=== PATIENT | male | born 1930 | race Caucasian/White ===

== ENCOUNTER 2017-03-07 22:43 | Observation (INO) | payer MEDICARE, BC ==
[~2017-03-07] VITALS: Ht 188 cm; Wt 84.9 kg
--- NOTE | ~2017-03-07 | ER ---
PATIENT'S NAME: BALBIR CLEARY [facility] AGE: 87 Y [address] ROOM: [place] [address] LOCATION: [facility] [place] ADMIT DATE: 03/08/2017 ER/Outpatient Report DISCHARGE DATE: FAMILY PHYSICIAN: PHYSICIAN, UNKNOWN ATTENDING PHYSICIAN: DANIEL ARMSTRONG V Admission date and time documented in medical record. I saw the patient at 2258 hours. CHIEF COMPLAINT: Generalized weakness and cough. HISTORY OF PRESENT ILLNESS: This patient is an 87-year-old male, who was outside most of the day gardening. He was doing okay, came inside tonight and just started to get onset of kind of generalized weakness that progressed to the point that he could hardly stand. He has a nonproductive cough. No chest pain. No abdominal pain. He did have some nausea and vomited once earlier tonight. Did not have any diarrhea or urinary complaints. He is not feeling short of breath. Does feel lightheaded and dizzy, but no syncope or near syncope. No headache, eyes, ears, nose, throat, neck, or spine pain. No recent infections that he has been fighting. No joint or muscle swelling, redness, or pain. No skin eruptions or rash. Does have rbw-kdfvqrw-vvqtpdpfy diabetes mellitus. No other endocrine problems. No neuro changes. No psych issues. HOME MEDICATIONS: See attached medication list. ALLERGIES: NONE. SOCIAL HISTORY: Nonsmoker and nondrinker. SIGNIFICANT PAST MEDICAL HISTORY: Hypertension, dyslipidemia, skin cancer, chronic atrial fibrillation, chronic anticoagulation with Coumadin, tachy-corinna syndrome, rbq-kwcujcc-dehqsyuwj diabetes mellitus, prostate cancer. OPERATIONS: Pacemaker implantation and skin cancer excisions. REVIEW OF SYSTEMS: All systems reviewed by me are negative with the exception of those discussed in the history of the present illness. PATIENT'S NAME: BALBIR CLEARY [facility] AGE: 87 Y [address] ROOM: [place] [address] LOCATION: [facility] [place] ADMIT DATE: 03/08/2017 ER/Outpatient Report DISCHARGE DATE: FAMILY PHYSICIAN: PHYSICIAN, UNKNOWN ATTENDING PHYSICIAN: DANIEL ARMSTRONG V PHYSICAL EXAMINATION: VITAL SIGNS: Temperature 100.8 tympanic, pulse 97, respiratory rate 20, blood pressure 132/59, O2 saturation on 4 L oxygen per nasal cannula is 93%. HEENT: Head normocephalic. No abrasion, contusion, laceration, or swelling of the scalp or face. Eyes: Extraocular muscles intact. SAMIA. Sclerae and conjunctivae are clear, nonicteric. Ears: Clear TMs bilaterally. Nose: Clear. Throat: Clear. Mucous membranes a little dry. NECK: No nuchal rigidity. No findings of adenopathy. No tenderness. SPINE: Negative. LUNGS: Clear. No rales, rhonchi, or wheezes. Fairly good air flow. Normal cough. HEART: Regular. Pulses palpable. The patient is mildly tachypneic. ABDOMEN: Soft, nondistended, nontender. Good bowel tones. No organomegaly or abnormal masses palpable. No CVA tenderness. PELVIS: Stable. EXTREMITIES: No peripheral edema, cyanosis, or deformity. NEURO: Cranial nerves appear to be intact. No lateralizing sign. The patient is awake, alert, cooperative. Motor and sensory intact. SKIN: Clear. No skin eruptions or rash. The patient just appears to be weak, but not overly lethargic. DIAGNOSTIC STUDIES: Chest x-ray shows no acute infiltrate. We will review x-ray with the radiologist. EKG showed atrial fibrillation, some possible anterolateral changes. LABORATORY DATA: ProBNP was 2431. CMS was normal except for an elevated glucose of 206. Elevated BUN of 28, elevated creatinine of 1.7, low GFR of 38. Magnesium was 1.5. CPK was 51. Bdunl-hz-nbsw cardiac enzymes were normal. Urine showed 0- 2 whites, 5-10 reds, 0-2 epithelial cells, negative bacteria per high-powered field. Culture: Pending. Two blood cultures were drawn, results pending. D- dimer was 0.81. White count is 5200, 24 segs, 58 bands, 11 lymphs, 6 monos, 1 eos. Hemoglobin is 9.9, hematocrit 30.9, platelet count is 122,000. PTT was 35. Protime is 25.5 and INR 2.41. Lactate was elevated at 2.4 Procalcitonin was elevated at 2.35. CRP was 0.69. Did give the patient IV normal saline and fluids. Did not start him on any antibiotics at this time. IMPRESSION: 1. Possible sepsis, etiology or source undetermined at this time but most likely respiratory. The patient does have a cough. He does have a fever PATIENT'S NAME: BALBIR CLEARY [facility] AGE: 87 Y [address] ROOM: [address] [place], [place] [address] LOCATION: [facility] [place] ADMIT DATE: 03/08/2017 ER/Outpatient Report DISCHARGE DATE: FAMILY PHYSICIAN: PHYSICIAN, UNKNOWN ATTENDING PHYSICIAN: DANIEL ARMSTRONG V of 100.8. He has normal white count, but he has bandemia with 58% bands. He is tachypneic, mildly hypoxic, elevated lactate and procalcitonin. New onset illness. Culture is pending. 2. Hypertension. 3. Rnw-fgzvdje-opeshakln diabetes mellitus with a blood sugar of 206. 4. Chronic renal failure with a BUN of 28, creatinine 1.7, low GFR of 38. 5. Anemia of chronic disease. 6. Chronic atrial fibrillation with chronic anticoagulation using Coumadin. 7. Thrombocytopenia. 8. History of tachy-corinna syndrome, having pacer rhythm at the present time. 9. Dyslipidemia. PLAN: Discussed the patient with Dr. Armstrong, hospitalist. Dr. Armstrong will come in to the emergency room to evaluate the patient. Most likely, we will admit the patient to the hospital. Probably, we will start him on an antibiotic and then further treatment and workup as needed. Discussion ensued with the patient concerning my findings and recommendations and he understands. Accumulated critical care time 30 minutes. MD CAROLYNN CHAVES/modl /[id number] d: 03/08/17 0439 t: 03/08/17 1809, OUTPATIENT REPORT
--- NOTE | ~2017-03-07 | HP ---
[facility] 87 Y [address] ROOM: [place] [id number] [place] [facility] [place]: 03/08/2017 History & Physical DISCHARGE DATE: FAMILY PHYSICIAN: PHYSICIAN, UNKNOWN ATTENDING PHYSICIAN: DANIEL ARMSTRONG V DATE OF SERVICE: CHIEF COMPLAINT: Fatigue, cough, nausea, and vomiting. HISTORY OF PRESENT ILLNESS: The patient is an 87-year-old male with past medical history as below. He was at his baseline and normally fairly healthy state of health until after supper last night. At that point, he developed fatigue, vomiting, and had to be helped around the house by his . Of note, he has been coughing productive of clear sputum even before his nausea and vomiting began. Initially, he went to bed, but continued to vomit, was weak, and was brought to the emergency room. Here his workup was remarkable for a normal white count and bandemia. He denies any chest pain, but does admit to some shortness of breath. No diarrhea. No constipation. No palpitations. No diaphoresis or syncope. REVIEW OF SYSTEMS: All 10 systems have been reviewed and are negative aside from pertinent positives as mentioned above. PAST MEDICAL HISTORY: 1. Prostatectomy for prostate cancer, currently on antihormone therapy. 2. Atrial fibrillation on Coumadin. 3. Status post pacemaker. 4. Essential hypertension. PAST SURGICAL HISTORY: The patient only endorses a history of a pacemaker and prostate surgery. SOCIAL HISTORY: Negative for any history of ongoing toxic habits. FAMILY HISTORY: Reviewed and noncontributory due to advanced age of this patient. CURRENT MEDICATIONS: 1. Coumadin. 2. Metoprolol. PATIENT'S NAME: BALBIR CLEARY [facility] AGE: 87 Y [address] ROOM: [address] [address] [place] [facility] [place]: 03/08/2017 History & Physical DISCHARGE DATE: FAMILY PHYSICIAN: PHYSICIAN, UNKNOWN ATTENDING PHYSICIAN: DANIEL ARMSTRONG V 3. Eulexin. 4. Zoladex. 5. PreserVision. 6. Hydrochlorothiazide. 7. Vitamin D. PHYSICAL EXAMINATION: VITAL SIGNS: Blood pressure 121/61, heart rate 89, satting 90% on room air, his temperature was 100.8 on admission, and respirations are 16. GENERAL: Appears as an elderly frail male in no acute distress. NEUROLOGIC: Exam is nonfocal. EYES: Exam shows pupils are equal and reactive to light. LYMPHATIC: Exam shows no cervical lymphadenopathy. ENDOCRINE: Exam shows no thyromegaly. LUNGS: Exam is significant for crackles at the left base. HEART: Irregular rate and rhythm without appreciable murmurs, gallops, or rubs. GI: Abdomen is soft, nontender, nondistended, but does reveal considerably diminished bowel sounds in all [place]. : Exam reveals no costovertebral angle tenderness. VASCULAR: A 2+ pedal pulses. MUSCULOSKELETAL: Exam is unremarkable. SKIN: Warm and dry. PSYCHIATRIC: Exam reveals appropriate mood, cognition, and affect. LABORATORY DATA: Studies done in the ER reveals a chest x-ray, which may have a questionable left-base infiltrate as per my interpretation. His lactate is 2.4, glucose is 206, creatinine is 1.7, from unknown baseline, pro-BNP is 2431. CBC white count 5.2, hemoglobin 9.9, and platelets 122. INR is 2.4. He does have 50% bands. Urinalysis is unremarkable. EKG reveals atrial fibrillation with rapid ventricular response. He does have some T-wave inversions in leads V3 through V6. ASSESSMENT AND PLAN: This is an 87-year-old male who will be admitted with febrile illness, nausea, vomiting, and bandemia. Individual problems to be addressed as follows: 1. Febrile illness/bandemia, given the fact that the patient does have a fever and bandemia as well as crackles at the left-base and he has had vomiting, we will treat him for a presumed pneumonia with Levaquin. We will put him on gastrointestinal prophylaxis with Florastor. We will follow blood cultures drawn in the ER. We will trend his white count and bands. 2. Diminished bowel sounds. We will do a 2-view flat film of his abdomen to rule out ileus, which may be contributing to his nausea and vomiting. PATIENT'S NAME: BALBIR CLEARY [facility] AGE: 87 Y [address] ROOM: [place] [address] [place] [facility] [place]: 03/08/2017 History & Physical DISCHARGE DATE: FAMILY PHYSICIAN: PHYSICIAN, UNKNOWN ATTENDING PHYSICIAN: DANIEL ARMSTRONG V 3. Elevated creatinine. I am not sure what the patient's baseline creatinine is, but we will gently hydrate him overnight and repeat his electrolytes in the morning. 4. Elevated pro-BNP and T-wave inversions. We will consider further cardiac workup in the morning. 5. Paroxysmal atrial fibrillation with rapid ventricular response due to probably an infectious process. He will be followed on telemetry. We will continue his lauren blockers. We will continue on his anticoagulation. 6. Prostate cancer. We will continue the patient on his current therapy. Additional management will depend on clinical course. Time dedicated to this patient encounter is 35 minutes. MD YUK/modl /[id number] D: 430 T: 740 HISTORY & PHYSICAL
[~2017-03-07 22:43] MED LIST changes: -COLACE100 MG PO; -FLORASTOR250 MG PO; -LEVAQUIN500 MG PO; -PRESERVISION A1 EACH PO
[2017-03-07 23:15] LABS: HEMATOCRIT 30.9 % (33.0-50.0); HEMOGLOBIN 9.9 g/dL (11.0-16.0); MCH 30.9 pg (27.0-34.0); MCV 96.6 fl (83.0-98.0); MPV 10.6 fl (9.4-12.4); PLATELET COUNT 122 K/uL (150-450); RDW-CV 13.2 % (11.9-14.6); WBC 5.2 K/uL (4.0-11.0)
[2017-03-07 23:21] LABS: INR - (THERAPEUTIC) 2.41 (0.92-1.07); PROTIME 25.5 SECONDS (9.8-11.4); PTT 35 SECONDS (25-32)
[2017-03-07 23:28] LABS: BILIRUBIN URINE NEGATIVE (NEGATIVE); BLOOD URINE 25 /UL (NEGATIVE); COLOR URINE YELLOW (YELLOW); GLUCOSE URINE NEGATIVE (NEGATIVE); KETONE URINE 15 mg/dL (NEGATIVE); LEUKOCYTES URINE NEGATIVE /UL (NEGATIVE); NITRITE URINE NEGATIVE (NEGATIVE); PROTEIN URINE 30 mg/dL (NEGATIVE); SPEC GRAVITY URINE 1.015 (1.003-1.035); TURBIDITY URINE CLEAR (CLEAR); UROBILINOGEN URINE NORMAL (NORMAL)
[2017-03-07 23:32] LABS: ALBUMIN 3.5 gm/dL (3.5-5.0); ALK PHOS 106 IU/L (33-138); ALT 17 IU/L (12-78); ANION GAP 11.7 (10.0-19.0); AST 14 IU/L (10-40); BLOOD UREA NITROGEN 28 mg/dL (6-24); CALCIUM 8.9 mg/dL (8.5-10.5); CHLORIDE 108 mMol/L (96-110); CO2 22 mMol/L (22-32); CPK 51 IU/L (35-332); CREATININE 1.7 mg/dL (0.6-1.3); ESTIMATED GFR (MDRD EQUATION) 38; MAGNESIUM 1.5 mg/dL (1.8-2.6); POTASSIUM 3.7 mMol/L (3.7-5.1); SODIUM 138 mMol/L (135-145); TOTAL BILIRUBIN 0.6 mg/dL (0.0-1.5); TOTAL PROTEIN 7.6 g/dL (6.0-8.4)
[2017-03-07 23:37] LABS: BACTERIA URINE NEGATIVE (NEGATIVE); EPITHELIAL URINE 0-2 #/HPF (NEGATIVE); WBC URINE 0-2 #/HPF (NEGATIVE)
[2017-03-07 23:50] LABS: ABSOLUTE NEUTROPHIL CT (ANC) 4.3 K/uL (1.4-9.0); BANDED NEUTROPHILS % 58 %; LYMPHOCYTE # 0.6 K/uL (0.8-4.0); LYMPHOCYTE % 11 %; MONOCYTE # 0.3 K/uL (0.0-1.0); SEGMENTED NEUTROPHIL # 1.3 K/uL (1.4-9.0); SEGMENTED NEUTROPHIL % 24 %
[2017-03-08] MEDS ORDERED: PRESERVISION A1 EACH PO (02:41)
[2017-03-08 06:20] LABS: INR - (THERAPEUTIC) 2.29 (0.92-1.07); PROTIME 24.3 SECONDS (9.8-11.4)
[2017-03-08 06:30] LABS: CALCIUM 8.4 mg/dL (8.5-10.5); CREATININE 1.6 mg/dL (0.6-1.3); MAGNESIUM 2.4 mg/dL (1.8-2.6)
[2017-03-08 06:42] LABS: HEMATOCRIT 29.1 % (33.0-50.0); HEMOGLOBIN 9.3 g/dL (11.0-16.0); MCH 31.1 pg (27.0-34.0); MCV 97.3 fl (83.0-98.0); PLATELET COUNT 124 K/uL (150-450); RBC 2.99 M/uL (3.50-5.50); RDW-CV 13.4 % (11.9-14.6)
[2017-03-08 07:54] LABS: LYMPHOCYTE # 1.2 K/uL (0.8-4.0); LYMPHOCYTE % 17 %; MONOCYTE # 0.3 K/uL (0.0-1.0); SEGMENTED NEUTROPHIL # 2.4 K/uL (1.4-9.0); SEGMENTED NEUTROPHIL % 34 %
[2017-03-08 07:55] LABS: ABSOLUTE NEUTROPHIL CT (ANC) 5.6 K/uL (1.4-9.0); BANDED NEUTROPHIL # 3.2 K/uL (0.0-0.1); BANDED NEUTROPHILS % 46 %
[2017-03-09] MEDS ORDERED: COLACE100 MG PO (12:20)
[2017-03-09] MEDS ORDERED: LEVAQUIN500 MG PO (12:22)
[2017-03-09] MEDS ORDERED: FLORASTOR250 MG PO (12:25)
== END 2017-03-09 14:30 | disposition disaster alternative care site (69) ==
LOC: GMED 22:43 → GMSU 03-08 01:55
PROVIDERS: Emergency Medicine; ADMIT Internal Medicine
DX: R65.10 Systemic inflammatory response syndrome (SIRS) of non-infectious origin without acute organ dysfunction (principal); I48.2 Chronic atrial fibrillation; I12.9 Hypertensive chronic kidney disease with stage 1 through stage 4 chronic kidney disease, or unspecified chronic kidney disease; N18.3 Chronic kidney disease, stage 3 (moderate); R79.89 Other specified abnormal findings of blood chemistry; Z85.46 Personal history of malignant neoplasm of prostate; Z90.79 Acquired absence of other genital organ(s); Z79.01 Long term (current) use of anticoagulants; Z95.0 Presence of cardiac pacemaker
CPT/HCPCS: G0378; J3475; J7030

== ENCOUNTER → 2017-03-07 | Outpatient (CLI) | payer MEDICARE, BC ==
[~2017-03-07] MED LIST: COLACE100 MG PO; COUMADIN ** IA3 MG PO; FLORASTOR250 MG PO; FLUTAMIDE125 MG PO; HYDROCHLOROTHIA25 MG PO; LEVAQUIN500 MG PO; LOPRESSOR100 MG PO; PRESERVISION A1 EACH PO; PRINIVIL OR ZES10 MG PO; TYLENOL WITH C1 EACH PO; VITAMIN D1000 UNIT PO; ZOLADEX3.6 MG IM
== END | disposition disaster alternative care site (69) ==
LOC: GAMB 22:21
DX: R53.1 Weakness (principal); I49.9 Cardiac arrhythmia, unspecified; I10 Essential (primary) hypertension; I48.2 Chronic atrial fibrillation; Z95.0 Presence of cardiac pacemaker; Z79.01 Long term (current) use of anticoagulants; Z79.899 Other long term (current) drug therapy
CPT/HCPCS: A0422; A0425; A0427; J7030